=== PATIENT | female | born 1995 | race Caucasian/White ===

== ENCOUNTER 2016-07-22 19:02 | Emergency (ER) | payer OTHER ==
[~2016-07-22] VITALS: Ht 162.6 cm; Wt 113.3 kg
[~2016-07-22 19:02] MED LIST: ALBU8.5H5 INH; CIPR500T3 PO; OXYC-302 PO; SULF1TAB24 PO
[2016-07-22 19:05] VITALS: BP 150/94
[2016-07-22] MEDS ORDERED: HYDROcodone/APAP 5/325 TABLET PO ONE (20:00)
[2016-07-22] MEDS ORDERED: ONDANSETRON ODT 4 MG PO ONE (20:00)
[2016-07-22] MEDS ORDERED: KETOROLAC 30 MG/1 ML IM ONE (20:30)
[2016-07-22] MEDS ORDERED: HYDROcodone/APAP 5/325 TABLET ONE (20:32)
[2016-07-22] MEDS ORDERED: ONDANSETRON ODT 4 MG ONE (20:32)
[2016-07-22 21:22] LABS: HCG UR OBC PASS
== END 2016-07-22 21:56 | disposition home or self-care (01) ==
LOC: ED 21:50
DX: S39.012A Strain of muscle, fascia and tendon of lower back, initial encounter (principal); M54.42 Lumbago with sciatica, left side; X58.XXXA Exposure to other specified factors, initial encounter; Y93.89 Activity, other specified; Y92.89 Other specified places as the place of occurrence of the external cause; Y99.9 Unspecified external cause status
CPT/HCPCS: 72110; 81001; 81025; 87086; 99285; J7512

== ENCOUNTER 2017-02-20 00:20 | Emergency (ER) | payer OTHER ==
[~2017-02-20] VITALS: Ht 167.6 cm; Wt 112.4 kg
[2017-02-20] MEDS ORDERED: MAALOX/HYOSCYAMINE/LIDOCAINE 45 ML BTL ONE (01:19)
[2017-02-20] MEDS ORDERED: MAALOX/HYOSCYAMINE/LIDOCAINE 45 ML BTL PO ONE (01:30)
[2017-02-20 01:32] VITALS: BP 141/85
== END 2017-02-20 01:34 | disposition home or self-care (01) ==
LOC: ED 00:32
DX: K21.9 Gastro-esophageal reflux disease without esophagitis (principal); J45.909 Unspecified asthma, uncomplicated
CPT/HCPCS: 71020; 93005; 99284

== ENCOUNTER 2017-04-04 17:13 | Emergency (ER) | payer OTHER ==
[~2017-04-04] VITALS: Ht 165.1 cm; Wt 113.5 kg
[2017-04-04] MEDS ORDERED: FLUORESCEIN OPHTHALMIC 1 MG STRIP ONE (17:42)
[2017-04-04] MEDS ORDERED: PROPARACAINE OPHTH 0.5%, 15ML ONE (17:42)
[2017-04-04] MEDS ORDERED: PROPARACAINE OPHTH 0.5%, 15ML EACHEYE ONE (18:00)
[2017-04-04] MEDS ORDERED: FLUORESCEIN OPHTHALMIC 1 MG STRIP EACHEYE ONE (18:00)
[2017-04-04] MEDS ORDERED: DIPHENHYDRAMINE 25 MG CAPSULE PO ONE (18:30)
[2017-04-04 18:57] VITALS: BP 151/88
== END 2017-04-04 19:00 | disposition home or self-care (01) ==
LOC: ED 18:42
DX: H10.233 Serous conjunctivitis, except viral, bilateral (principal); J45.909 Unspecified asthma, uncomplicated; Z87.891 Personal history of nicotine dependence
CPT/HCPCS: 99283

== ENCOUNTER 2018-01-03 06:26 | Emergency (ER) | payer SELFPAY ==
[~2018-01-03] VITALS: Ht 165.1 cm; Wt 111.8 kg
[2018-01-03] MEDS ORDERED: KETOROLAC 30 MG/1 ML IM ONE (07:00)
[2018-01-03] MEDS ORDERED: METHOCARBAMOL 750 MG TABLET PO ONE (07:00)
[2018-01-03] MEDS ORDERED: ONDANSETRON ODT 4 MG PO ONE (07:00)
[2018-01-03] MEDS ORDERED: HYDROcodone/APAP 5/325 TABLET PO ONE (07:00)
[2018-01-03] MEDS ORDERED: ONDANSETRON ODT 4 MG ONE (07:13)
[2018-01-03] MEDS ORDERED: METHOCARBAMOL 750 MG TABLET ONE (07:13)
[2018-01-03] MEDS ORDERED: KETOROLAC 30 MG/1 ML ONE (07:13)
[2018-01-03] MEDS ORDERED: HYDROcodone/APAP 5/325 TABLET ONE (07:14)
[2018-01-03 08:16] VITALS: BP 167/107
== END 2018-01-03 08:21 | disposition home or self-care (01) ==
LOC: ED 06:56
DX: M54.41 Lumbago with sciatica, right side (principal); I10 Essential (primary) hypertension; J45.909 Unspecified asthma, uncomplicated; E66.9 Obesity, unspecified
CPT/HCPCS: 96372; 99284; J1885; Q0162

== ENCOUNTER 2018-10-16 04:50 | Inpatient (IN) | payer OTHER ==
[~2018-10-16] VITALS: Ht 165.1 cm; Wt 109.8 kg
[2018-10-16] MEDS ORDERED: MORPHINE SULFATE 4 MG/ML, 1ML ONE ×3 (05:16→18:11)
[2018-10-16] MEDS ORDERED: ONDANSETRON 2MG/ML, 2ML ONE ×2 (05:16→16:30)
[2018-10-16] MEDS ORDERED: ONDANSETRON 2MG/ML, 2ML IVPush ONE (05:30)
[2018-10-16] MEDS ORDERED: SODIUM CHLORIDE FLUSH 10ML SYR IVF ONE (05:30)
[2018-10-16 05:41] LABS: BASOPHILS # (AUTO) 0.03 x10^3/uL (0-0.1); BASOPHILS % (AUTO) 0 % (0-1); EOSINOPHILS # (AUTO) 0.34 x10^3/uL (0-0.4); EOSINOPHILS % (AUTO) 4 % (1-7); LYMPHOCYTES # (AUTO) 2.97 x10^3/uL (1-3.4); LYMPHOCYTES % (AUTO) 31 % (22-44); MD NO; MEAN CORPUSCULAR HEMOGLOBIN 29.5 pg (27.0-34.8); MEAN CORPUSCULAR HGB CONC 33.7 g/dL (32.4-35.8); MEAN CORPUSCULAR VOLUME 87.6 fL (80-100); MEAN PLATELET VOLUME 8.4 fL (7.4-10.4); MONOCYTES # (AUTO) 0.64 x10^3/uL (0.2-0.8); MONOCYTES % (AUTO) 7 % (2-9); NEUTROPHILS # (AUTO) 5.54 x10^3/uL (1.8-6.8); NEUTROPHILS % (AUTO) 58 % (42-75); PLATELET COUNT 340 x10^3/uL (130-400); RED BLOOD COUNT 5.22 x10^6/uL (3.82-5.3); RED CELL DISTRIBUTION WIDTH 13.2 % (9.6-15.2)
[2018-10-16] MEDS ORDERED: METOCLOPRAMIDE 5 MG/ML, 2ML ONE (05:41)
[2018-10-16] MEDS: MORPHINE SULFATE 4 MG/ML, 1ML IVPush PRN ×2 (05:43→08:10)
[2018-10-16 05:44] LABS: ALANINE AMINOTRANSFERASE 122 U/L (12-78); ANION GAP 12 mmol/L (5-15); CALCIUM 8.9 mg/dL (8.5-10.1); CHLORIDE 102 mmol/L (98-107)
[2018-10-16 05:49] LABS: ALKALINE PHOSPHATASE 165 U/L (45-117); BILIRUBIN,TOTAL 0.3 mg/dL (0.2-1.0); CREATININE 0.74 mg/dL (0.55-1.02); TOTAL PROTEIN 8.4 g/dL (6.4-8.2)
[2018-10-16 05:56] LABS: MICROSCOPIC AUTO
[2018-10-16] MEDS ORDERED: METOCLOPRAMIDE 5 MG/ML, 2ML IVPush ONE (06:00)
[2018-10-16 06:06] LABS: CULTURE INDICATED? YES
--- NOTE | 2018-10-16 06:56 | NUR ---
PATIENT ARRIVES TO ER WITH PELVIC PAIN. BLOOD TINGED URINE. AWAITING CT RESULTS.
--- NOTE | 2018-10-16 07:41 | NUR ---
PATIENT HAS RENAL STONE. AWAITING ER OUTCOME.
--- NOTE | 2018-10-16 08:23 | NUR ---
PATIENT CONTINUES TO HAVE PAIN. MEDICATED. PAIN 8/10 ABDOMEN/FLANK
[2018-10-16] MEDS ORDERED: MORPHINE SULFATE 4 MG/ML, 1ML IVPush PRN ×2 (08:30→18:30)
[2018-10-16] MEDS ORDERED: SODIUM CHLORIDE FLUSH 10ML SYR IVF PRN (08:30)
[2018-10-16] MEDS ORDERED: ALBUTEROL SULFATE 2.5 MG/3 ML NPPB PRN (11:00)
[2018-10-16] MEDS ORDERED: DOCUSATE 100 MG CAPSULE PO PRN (11:00)
[2018-10-16] MEDS ORDERED: ACETAMINOPHEN 325 MG TABLET PO PRN (11:00)
[2018-10-16] MEDS ORDERED: morphine SULFATE 10 MG/ML, 1ML IVPush PRN (11:00)
[2018-10-16] MEDS ORDERED: ZOLPIDEM 5MG TABLET PO PRN (11:00)
[2018-10-16] MEDS ORDERED: D5%-LR+KCL 20MEQ 1,000 ML IV SCH (11:00)
[2018-10-16 11:02] LABS: HEMOGLOBIN A1C 8.6 % (4.2-6.3)
[2018-10-16] MEDS: HYDROcodone/APAP 5/325 TABLET PO PRN ×2 (11:51→20:33)
[2018-10-16] MEDS: LACTATED RINGERS 1,000 ML IV SCH ×2 (12:06→21:52)
[2018-10-16] MEDS: INSULIN LISPRO 100 UNITS/ML, PEN SQ-INSULIN SCH ×3 (12:07→21:50)
[2018-10-16 12:14] VITALS: BP 159/107
[2018-10-16] MEDS: hydrALAzine 20 MG/ML, 1ML IVPush PRN ×2 (12:17→21:38)
[2018-10-16 13:44] VITALS: BP 158/95
[2018-10-16] MEDS: METOCLOPRAMIDE 5 MG/ML, 2ML IVPush PRN ×2 (13:47→21:28)
[2018-10-16] MEDS ORDERED: MIDAZOLAM 1 MG/ML, 2ML ONE (15:58)
[2018-10-16] MEDS ORDERED: FENTANYL PF 250 MCG/5ML ONE (15:59)
[2018-10-16] MEDS ORDERED: CEFAZOLIN 1,000 MG ONE (16:05)
[2018-10-16] MEDS ORDERED: ROCURONIUM 10MG/ML,5ML ONE (16:29)
[2018-10-16] MEDS ORDERED: PROPOFOL 10 MG/ML, 20ML ONE ×4 (16:29)
[2018-10-16] MEDS ORDERED: SUCCINYLCHOLINE 20 MG/ML, 10ML ONE (16:30)
[2018-10-16] MEDS ORDERED: DEXAMETHASONE 4 MG/ML, 1ML ONE (16:30)
[2018-10-16] MEDS ORDERED: OMNIPAQUE 350 MG/ML, 50 ML BOTTLE IV ONE (16:35)
[2018-10-16] MEDS ORDERED: OXYcodone 5 MG/5 ML ORAL.SOL UDC ONE (18:14)
[2018-10-16] MEDS ORDERED: FENTANYL PF 100 MCG/2ML ONE (18:15)
[2018-10-16] MEDS ORDERED: OXYcodone 5 MG/5 ML ORAL.SOL UDC PO PRN (18:30)
[2018-10-16] MEDS ORDERED: FENTANYL PF 100 MCG/2ML IV PRN (18:30)
[2018-10-16] MEDS ORDERED: MEPERIDINE/PF 25MG/0.5ML IVPush PRN (18:30)
[2018-10-16 19:09] VITALS: BP 160/103
[2018-10-16 21:34] VITALS: BP 155/101
[2018-10-17 02:39] VITALS: BP 155/88
[2018-10-17] MEDS: HYDROcodone/APAP 5/325 TABLET PO PRN ×2 (02:47→07:14)
[2018-10-17] MEDS: LACTATED RINGERS 1,000 ML IV SCH (03:35)
[2018-10-17 05:15] LABS: BASOPHILS # (AUTO) 0.05 x10^3/uL (0-0.1); BASOPHILS % (AUTO) 0 % (0-1); EOSINOPHILS # (AUTO) 0.06 x10^3/uL (0-0.4); EOSINOPHILS % (AUTO) 0 % (1-7); LYMPHOCYTES # (AUTO) 2.24 x10^3/uL (1-3.4); LYMPHOCYTES % (AUTO) 16 % (22-44); MD NO; MEAN CORPUSCULAR HEMOGLOBIN 29.2 pg (27.0-34.8); MEAN CORPUSCULAR HGB CONC 33.1 g/dL (32.4-35.8); MEAN CORPUSCULAR VOLUME 88.4 fL (80-100); MEAN PLATELET VOLUME 8.7 fL (7.4-10.4); MONOCYTES # (AUTO) 0.91 x10^3/uL (0.2-0.8); MONOCYTES % (AUTO) 7 % (2-9); NEUTROPHILS # (AUTO) 10.57 x10^3/uL (1.8-6.8); NEUTROPHILS % (AUTO) 77 % (42-75); PLATELET COUNT 356 x10^3/uL (130-400); RED BLOOD COUNT 4.98 x10^6/uL (3.82-5.3); RED CELL DISTRIBUTION WIDTH 13.2 % (9.6-15.2)
[2018-10-17 05:20] LABS: ANION GAP 12 mmol/L (5-15); CALCIUM 9.3 mg/dL (8.5-10.1); CHLORIDE 101 mmol/L (98-107); CREATININE 0.62 mg/dL (0.55-1.02)
[2018-10-17 07:15] VITALS: BP 174/106
[2018-10-17] MEDS: hydrALAzine 20 MG/ML, 1ML IVPush PRN (07:25)
[2018-10-17] MEDS: INSULIN LISPRO 100 UNITS/ML, PEN SQ-INSULIN SCH ×2 (07:35→11:05)
[2018-10-17 07:41] VITALS: BP 153/81
[2018-10-17] MEDS ORDERED: metFORMIN 500 MG TABLET PO SCH (09:00)
[2018-10-17] MEDS: METOCLOPRAMIDE 5 MG/ML, 2ML IVPush PRN (10:17)
[2018-10-17] MEDS ORDERED: METF500T17 PO (12:40)
[2018-10-17] MEDS ORDERED: HYDR-3237 PO (12:40)
[2018-10-17] MEDS ORDERED: METO10TA82 PO (12:44)
[2018-10-17 13:00] VITALS: BP 146/79
[2018-10-17] MEDS ORDERED: CIPR500T87 PO (13:43)
== END 2018-10-17 14:10 | disposition home or self-care (01) | DRG 660 ==
LOC: ED 07:05 → EDIP 08:22 → 4NOR 09:33
PROVIDERS: ADMIT Internal Medicine; ATTEND Internal Medicine
PROC: 0TC68ZZ Extirpation of Matter from Right Ureter, Via Natural or Artificial Opening Endoscopic (ICD-10-PCS; 2018-10-16)
PROC: 0T768DZ Dilation of Right Ureter with Intraluminal Device, Via Natural or Artificial Opening Endoscopic (ICD-10-PCS; principal; 2018-10-16 16:30)
DX: N20.2 Calculus of kidney with calculus of ureter (principal); Z68.41 Body mass index [BMI] 40.0-44.9, adult; E66.01 Morbid (severe) obesity due to excess calories; E11.9 Type 2 diabetes mellitus without complications; F12.90 Cannabis use, unspecified, uncomplicated; J45.909 Unspecified asthma, uncomplicated; K76.0 Fatty (change of) liver, not elsewhere classified; Z79.84 Long term (current) use of oral hypoglycemic drugs; Z83.3 Family history of diabetes mellitus; Z87.440 Personal history of urinary (tract) infections; Z88.8 Allergy status to other drugs, medicaments and biological substances; E28.2 Polycystic ovarian syndrome
CPT/HCPCS: 36415; 74176; 74420; 80048; 80053; 81001; 82360; 82962; 83036; 83690; 83735; 84703; 85025; 87086; 87147; 88300; G0378; J0690; J1100; J2250; J2405; J2704; J3010; Q9967; C1758; C1769; C2617; J0330; J0360; J1815; J2270; J2765; J3480; J7120

== ENCOUNTER 2018-10-18 00:29 | Inpatient (IN) | payer MEDICAID, OTHER ==
[~2018-10-18] VITALS: Ht 167.6 cm; Wt 108.3 kg
[2018-10-21 09:44] VITALS: BP 134/84
== END 2018-10-21 12:30 | disposition home or self-care (01) | DRG 872 ==
LOC: ED 00:44 → EDIP 03:46 → 4WST 05:13 → DCLOUNGE 10-20 16:35 → 4WST 10-20 16:57 → DCLOUNGE 10-21 12:15
PROVIDERS: ADMIT Internal Medicine; ATTEND Internal Medicine
PROC: 0T9B70Z Drainage of Bladder with Drainage Device, Via Natural or Artificial Opening (ICD-10-PCS; principal; 2018-10-18)
DX: A41.9 Sepsis, unspecified organism (principal); N20.1 Calculus of ureter; E66.01 Morbid (severe) obesity due to excess calories; Z88.8 Allergy status to other drugs, medicaments and biological substances; E28.2 Polycystic ovarian syndrome; E87.6 Hypokalemia; F12.90 Cannabis use, unspecified, uncomplicated; G47.00 Insomnia, unspecified; I10 Essential (primary) hypertension; J45.909 Unspecified asthma, uncomplicated; K76.0 Fatty (change of) liver, not elsewhere classified; N30.91 Cystitis, unspecified with hematuria; Z83.3 Family history of diabetes mellitus; E11.65 Type 2 diabetes mellitus with hyperglycemia
CPT/HCPCS: 36415; 84145; 99285; J3490; 80048; 80053; 81001; 82962; 83036; 83605; 83690; 83735; 84484; 85025; 87040; 87086; 87147; 93005; G0378; J0696; J1644; J1885; J0360; J1815; J2270; J2765; J7030

== ENCOUNTER 2019-01-29 11:28 | Emergency (ER) | payer MEDICAID ==
[~2019-01-29] VITALS: Ht 167.6 cm; Wt 104.7 kg
[~2019-01-29 11:28] MED LIST changes: +ACET325T26 PO; +ACID1TAB7 PO; +CARV6.2512 PO; +CEFU250T66 PO; +CIPR500T87 PO; +HYDR-3237 PO; +INDO50CA15 PO; +KETO10TA PO; +LISI-167 PO; +METF500T17 PO; +METF850T10 PO; +METO10TA82 PO
[2019-01-29 11:40] VITALS: BP 164/103
--- NOTE | 2019-01-29 12:19 | NUR ---
Patient/Caregiver given discharge instructions and they have confirmed that they understand the instructions. Patient ambulatory with steady gait.
== END 2019-01-29 13:48 | disposition home or self-care (01) ==
LOC: ED 12:34
DX: J06.9 Acute upper respiratory infection, unspecified (principal); I10 Essential (primary) hypertension; J45.909 Unspecified asthma, uncomplicated; E11.9 Type 2 diabetes mellitus without complications; Z87.891 Personal history of nicotine dependence
CPT/HCPCS: 82962; 93005; 99283

== ENCOUNTER 2020-12-02 21:56 | Emergency (ER) | payer MEDICAID ==
[~2020-12-02] VITALS: Ht 165.1 cm; Wt 107.0 kg
[~2020-12-02 21:56] MED LIST changes: -CIPR500T3 PO; +CIPR500T4 PO; -OXYC-302 PO; +OXYC1TAB12 PO; +SULF-23 PO; -SULF1TAB24 PO
--- NOTE | 2020-12-02 22:59 | NUR ---
painful urination, L flank pain. hx of kindey stones.
[2020-12-02] MEDS ORDERED: KETOROLAC 30 MG/1 ML IVPush ONE (23:00)
[2020-12-02] MEDS ORDERED: PROMETHAZINE 25 MG/ML, 1ML IM ONE (23:00)
[2020-12-02] MEDS ORDERED: SODIUM CHLORIDE FLUSH 10ML SYR IVF ONE (23:00)
[2020-12-02] MEDS ORDERED: PROMETHAZINE 25 MG/ML, 1ML ONE (23:07)
[2020-12-02] MEDS ORDERED: MORPHINE SULFATE 4 MG/ML, 1ML ONE (23:07)
[2020-12-02] MEDS ORDERED: KETOROLAC 30 MG/1 ML ONE (23:07)
[2020-12-02] MEDS: MORPHINE SULFATE 4 MG/ML, 1ML IVPush PRN (23:20)
--- NOTE | 2020-12-02 23:22 | NUR ---
PIV placed, pt medicated per order, tolerated well. awaiting CT at this time.
[2020-12-02 23:26] LABS: MICROSCOPIC AUTO
[2020-12-02 23:40] LABS: ALANINE AMINOTRANSFERASE 63 U/L (12-78); ALBUMIN 3.7 g/dL (3.4-5.0); ANION GAP 10 mmol/L (5-15); CALCIUM 8.8 mg/dL (8.5-10.1); CHLORIDE 99 mmol/L (98-107); CREATININE 0.61 mg/dL (0.55-1.02)
[2020-12-02 23:44] LABS: ALKALINE PHOSPHATASE 117 U/L (45-117); BILIRUBIN,TOTAL 0.3 mg/dL (0.2-1.0); TOTAL PROTEIN 8.2 g/dL (6.4-8.2)
[2020-12-02 23:46] LABS: BASOPHILS % (AUTO) 1 % (0-1); EOSINOPHILS % (AUTO) 4 % (1-7); LYMPHOCYTES % (AUTO) 34 % (22-44); MEAN CORPUSCULAR HEMOGLOBIN 29.2 pg (27.0-34.8); MEAN CORPUSCULAR HGB CONC 33.9 g/dL (32.4-35.8); MEAN PLATELET VOLUME 8.6 fL (7.4-10.4); MONOCYTES % (AUTO) 6 % (2-9); NEUTROPHILS % (AUTO) 55 % (42-75); PLATELET COUNT 278 x10^3/uL (130-400); RED BLOOD COUNT 5.22 x10^6/uL (3.82-5.3); RED CELL DISTRIBUTION WIDTH 13.2 % (9.6-15.2)
[2020-12-03] MEDS ORDERED: MORPHINE SULFATE 4 MG/ML, 1ML ONE (00:22)
[2020-12-03] MEDS: MORPHINE SULFATE 4 MG/ML, 1ML IVPush PRN (00:23)
--- NOTE | 2020-12-03 00:31 | NUR ---
PT HAS ELEVATED BLOOD PRESSURES, THIS RN ASKED IF PT TAKES ANY BLOOD PRESSURE MEDICATIONS AND PT STATED THAT SHE IS SUPPOSED TO BE TAKING LISINOPRIL BUT HASNT BEEN FOR THE LAST 3 MONTHS, PT NONCOMPLIANT WITH MEDICATIONS, PT COMPLAINED OF CHEST TIGHTNESS, BULK SUGAR HANDLER DID EKG AND SHOWED TO ER
--- NOTE | 2020-12-03 01:06 | NUR ---
PT LAYING IN BED, PT NO LONGER ACTIVELY VOMITING OR COMPLAING OF SEVERE PAIN, FRIEND AT BEDSIDE
--- NOTE | 2020-12-03 02:08 | NUR ---
MD AT BEDSIDE TO DISCUSS POC
--- NOTE | 2020-12-03 02:25 | NUR ---
Break RN: medicated patient per mar. Patient resting with no complaints at this time.
[2020-12-03] MEDS ORDERED: CEFTRIAXONE 1,000 MG in DEXTROSE 5% 50 ML IVPB ONE (02:30)
[2020-12-03 03:32] VITALS: BP 130/75
== END 2020-12-03 03:35 | disposition home or self-care (01) ==
LOC: ED 23:59
DX: N10 Acute pyelonephritis (principal); R94.31 Abnormal electrocardiogram [ECG] [EKG]; I10 Essential (primary) hypertension; E11.9 Type 2 diabetes mellitus without complications; J45.909 Unspecified asthma, uncomplicated; Z90.89 Acquired absence of other organs; Z87.891 Personal history of nicotine dependence
CPT/HCPCS: 36415; 74176; 80053; 81001; 84703; 85025; 87086; 93005; 96365; 96372; 96375; 96376; 99285; J0696; J1885; J2270; J2550